=== PATIENT | male | born 1980 | race African-American/Black ===

== ENCOUNTER → 2025-07-18 | Outpatient (CLI) | payer MEDICAID, SELFPAY ==
--- NOTE | 2025-07-18 09:50 | XR_ITS ---
Examination: MRI cervical spine without intravenous contrast Date and time of exam: July 18, 2025, 10:11 a.m. INDICATIONS: Neck pain 3 years Technique: Multiple axial and sagittal sections of the cervical spine to been obtained. T2 weighted sagittal sections, TR 3, 270, TE 117 T1-weighted sagittal sections, TR 500, TE 11 T1-weighted axial sections, TR 607, TE 12, axial sections TR 18, TE 27 and T2 weighted transverse sections, TR 3920, TE 122. Findings: Straightening normal cervical lordosis No cervical fracture Diffuse cervical disc desiccation Intact odontoid No localized enlargement cervical cord Moderate disc narrowing C5-C6 Axial images are degraded by patient motion No focal disc protrusion impinging upon the cervical cord IMPRESSION: Limited study secondary to patient motion Moderate degenerative disc disease C5-C6 No focal cervical disc protrusion impinging upon the thoracic cord
== END | disposition home or self-care (01) ==
PROVIDERS: PCP Nurse Practitioner Family; Referring Provider Orthopaedic Surgery; Visit Provider Orthopaedic Surgery
DX: M50.322 Other cervical disc degeneration at C5-C6 level (principal)
CPT/HCPCS: 72141